=== PATIENT | female | born 1995 | race Caucasian/White ===

== ENCOUNTER 2016-12-22 02:29 | Emergency (ER) | payer OTHER ==
[~2016-12-22] VITALS: Ht 157.5 cm; Wt 56.2 kg
[2016-12-22] MEDS ORDERED: ZOFRAN4 MG PO (04:54)
[2016-12-22 05:13] VITALS: BP 115/84
== END 2016-12-22 05:14 | disposition home or self-care (01) ==
LOC: EME → EDBD 02:29 → EME 02:29
DX: F10.129 Alcohol abuse with intoxication, unspecified (principal); K21.9 Gastro-esophageal reflux disease without esophagitis; F41.9 Anxiety disorder, unspecified; F17.200 Nicotine dependence, unspecified, uncomplicated
CPT/HCPCS: 99281; 99285; J2405; J7030

== ENCOUNTER 2017-10-07 22:25 | Emergency (ER) | payer OTHER ==
[~2017-10-07] VITALS: Ht 160 cm; Wt 53.1 kg
[~2017-10-07 22:25] MED LIST: ZOFRAN4 MG PO
[2017-10-07] MEDS ORDERED: MOTRIN600 MG PO (23:17)
[2017-10-08 00:05] VITALS: BP 117/67
== END 2017-10-08 00:05 | disposition home or self-care (01) ==
LOC: EME 22:25
DX: S63.92XA Sprain of unspecified part of left wrist and hand, initial encounter (principal); X50.1XXA Overexertion from prolonged static or awkward postures, initial encounter; Y93.F2 Activity, caregiving, lifting; Y99.0 Civilian activity done for income or pay; Z88.5 Allergy status to narcotic agent; Z88.6 Allergy status to analgesic agent; Z91.013 Allergy to seafood
CPT/HCPCS: 73130; 99281; 99284